=== PATIENT | female | born 2000 | race Caucasian/White ===

== ENCOUNTER 2018-06-16 03:54 | Emergency (ER) | payer BC ==
[~2018-06-16] VITALS: Ht 165.1 cm; Wt 54.4 kg
--- OUTSIDE RECORDS SUMMARY | 2018-06-16 04:00 | XMS REPORT ---
Author Author Bell Mckeon Organization [facility] Address [address] [place] [address] [place] [address] Care Team Providers Care Public Health Inspector Name Role Phone Bell Mckeon Unavailable PROBLEMS Type Condition ICD9-CM Code [id number] Code Onset Dates Condition Status SNOMED Code Problem Acne vulgaris L70.0 Active [id number] ALLERGIES No Known Allergies SOCIAL HISTORY Never Assessed PLAN OF CARE VITAL SIGNS Heart Rate 73 /min 2017-06-11 Height 5 ft 5 in in 2017-06-11 Weight 120 lbs 2017-06-11 BMI 19.97 kg/m2 2017-06-11 Blood pressure systolic 111 mm Hg 2017-06-11 Blood pressure diastolic 72 mm Hg 2017-06-11 MEDICATIONS Medication Instructions Dosage Frequency Start Date End Date Duration Status Solodyn 55 MG Orally daily as directed 24h May, 30 days or untill clear Active Spironolactone 100 MG Orally Once a day 1 tablet with food 24h May, 30 days or untill clear Active Fabior 0.1 % Externally Once a day 1 application to affected area 24h May, 30 days or untill clear Active RESULTS No Results PROCEDURES No Known procedures IMMUNIZATIONS No Known Immunizations MEDICAL (GENERAL) HISTORY Type Description Date Medical History Acne
--- OUTSIDE RECORDS SUMMARY | 2018-06-16 04:00 | XMS REPORT | Continuity of Care Document ---
Demographics Preferred Language Unknown Marital Status Unknown Tenriism Affiliation Unknown Race Unknown Ethnic Group Unknown Author Author Formerly [facility] Address Unknown Phone Unavailable Allergies There is no data. Medications There is no data. Problems There is no data. Procedures There is no data. Results There is no data. Encounters ACCT No. Visit Date/Time Discharge Status Pt. Type Provider Facility Loc./Unit Complaint [id number] 09/02/2012 13:02:12 RECURRING
--- OUTSIDE RECORDS SUMMARY | 2018-06-16 04:00 | XMS REPORT ---
Author Author [facility] Address [address] [place] [address] Care Team Providers Care [employer] Sales Representative Name Role Phone CASTILLOPAOLA Unavailable PROBLEMS Unknown Problems ALLERGIES No Information ENCOUNTERS Encounter Location Date Diagnosis [facility] [id number], [place] [address] October, Encounter for immunization Z23 [facility] [id number] [place] [phone] Jan, Encounter for immunization Z23 [facility] [id number] [place] [phone] Jan, No immunization history record Z78.9 [facility] [id number] [place] [phone] Jan, No immunization history record Z78.9 [facility] [id number] [address] Aug, IMMUNIZATIONS Vaccine Route Administration Date Status MENINGOCOCCAL (MENVEO) IM Intramuscular November 16, 2017 Administered GARDASIL 9 IM Intramuscular November 16, 2017 Administered HEP A (ADULT) IM Intramuscular November 16, 2017 Administered SOCIAL HISTORY Never Assessed REASON FOR VISIT Immunization(s) WB-MA PLAN OF CARE Activity Details Follow Up 2 Months Reason:Next Gardasil injection VITAL SIGNS MEDICATIONS Unknown Medications RESULTS No Results PROCEDURES Procedure Date Ordered Result Body Site MENINGOCOCCAL (MENVEO) November 16, 2017 HEP A (ADULT) November 16, 2017 SINGLE IMMUNIZATION ADMIN November 16, 2017 GARDISIL 9 November 16, 2017 IMMUNIZATION ADMIN, EACH ADD (please include units) November 16, 2017 INSTRUCTIONS MEDICATIONS ADMINISTERED No Known Medications
[2018-06-16] MEDS ORDERED: LACTATED RINGERS 1,000 ML IV ONE (04:12)
[2018-06-16] MEDS ORDERED: ONDANSETRON 4 MG/2 ML (SDV) Z0FRAN IVP ONE ×2 (04:15→04:30)
--- NOTE | 2018-06-16 04:20 | ED GI ---
General Stated Complaint: NAUSEA Source of Information: Patient, Family (mom and dad) Exam Limitations: No Limitations History of Present Illness Date Seen by Provider: Jun 16, 2018 Time Seen by Provider: 04:06 Initial Comments The patient presents to ER by private conveyance with mom and dad and chief complaint that about 3:00 this morning she woke up feeling very short of breath and she thought she was having a panic attack and then she started having a lot of vomiting. He denies any fevers or chills. She denies any productive cough nonproductive cough. She's not been around any sick contacts recently. She's having no diarrhea. She had a bowel movement earlier today that was normal formed. No recent cough cold fevers or chills. She has no significant medical history but she has had her appendix out surgically as well as she had an ovarian cyst about a month ago that ruptured and her OB doctor has an appointment with her later in the week to consider another possible ovarian cyst in her left lower quadrant. She is not having any pain right now. Her last menstrual period started 4 days ago and she is very regular on her oral contraceptives. She occasionally takes spironolactone for her acne with her last dose being 4 days ago. Allergies and Home Medications Allergies Coded Allergies: No Known Drug Allergies (Unverified , 03/20/11) Home Medications Ondansetron 4 Mg Tab.rapdis, 4 MG PO Q6H PRN for NAUSEA/VOMITING Prescribed by: JUAN CARLOS GARRIDO on 06/16/18 0518 Patient Home Medication List Home Medication List Reviewed: Yes Review of Systems Review of Systems Constitutional: No chills, No diaphoresis EENTM: No Blurred Vision, No Double Vision Respiratory: Denies Cough, Denies Shortness of Air Cardiovascular: Denies Chest Pain, Denies Edema Gastrointestinal: Denies Abdomen Distended, Denies Abdominal Pain Genitourinary: Denies Burning, Denies Discharge Musculoskeletal: No back pain, No joint pain Psychiatric/Neurological: Anxiety; Denies Depressed Past Mtsnrmq-Uiedkm-Zossft Hx Patient Social History Alcohol Use: Denies Use Recreational Drug Use: No Smoking Status: Never a Smoker Recent Foreign Travel: No Contact w/Someone Who Travel: No Physical Exam Vital Signs Vital Signs - First Documented 06/16/18 04:06 Temp 97.7 Pulse 119 Resp 20 B/P (MAP) 141/96 (111) Pulse Ox 100 O2 Delivery Room Air Capillary Refill : Height/Weight/BMI Height: '" Weight: lbs. oz. kg; BMI Method: General Appearance: WD/WN, no apparent distress HEENT: PERRL/EOMI, normal ENT inspection, TMs normal, pharynx normal (mildly dry mucosa) Neck: non-tender, full range of motion, normal inspection Respiratory: chest non-tender, lungs clear, normal breath sounds, no respiratory distress, no accessory muscle use Cardiovascular: normal peripheral pulses, regular rate, rhythm, no edema Gastrointestinal: normal bowel sounds, soft, tenderness (mild tenderness near the left ovary), other (negative for Dinh sign or any mesenteric signs. No psoas sign.) Extremities: non-tender, normal inspection, no pedal edema, normal capillary refill Neurologic/Psychiatric: alert, normal mood/affect, oriented x 3 Skin: normal color, warm/dry Progress/Results/Core Measures Results/Orders Lab Results Laboratory Tests Test 06/16/18 04:12 06/16/18 04:36 06/16/18 04:43 Range/Units White Blood Count 13.5 H 4.3-11.0 10^3/uL Red Blood Count 4.52 4.35-5.85 10^6/uL Hemoglobin 14.7 11.5-16.0 G/DL Hematocrit 42 35-52 % Mean Corpuscular Volume 94 80-99 FL Mean Corpuscular Hemoglobin 33 25-34 PG Mean Corpuscular Hemoglobin Concent 35 32-36 G/DL Red Cell Distribution Width 12.2 10.0-14.5 % Platelet Count 338 130-400 10^3/uL Mean Platelet Volume 10.0 7.4-10.4 FL Neutrophils (%) (Auto) 75 42-75 % Lymphocytes (%) (Auto) 18 12-44 % Monocytes (%) (Auto) 6 0-12 % Eosinophils (%) (Auto) 1 0-10 % Basophils (%) (Auto) 0 0-10 % Neutrophils # (Auto) 10.2 H 1.8-7.8 X 10^3 Lymphocytes # (Auto) 2.4 1.0-4.0 X 10^3 Monocytes # (Auto) 0.8 0.0-1.0 X 10^3 Eosinophils # (Auto) 0.1 0.0-0.3 10^3/uL Basophils # (Auto) 0.0 0.0-0.1 10^3/uL Sodium Level 140 135-145 MMOL/L Potassium Level 3.7 3.6-5.0 MMOL/L Chloride Level 105 98-107 MMOL/L Carbon Dioxide Level 22 21-32 MMOL/L Anion Gap 13 5-14 MMOL/L Blood Urea Nitrogen 15 7-18 MG/DL Creatinine 0.81 0.60-1.30 MG/DL Estimat Glomerular Filtration Rate > 60 BUN/Creatinine Ratio 19 Glucose Level 102 70-105 MG/DL Calcium Level 9.7 8.5-10.1 MG/DL Corrected Calcium 8.5-10.1 MG/DL Magnesium Level 2.1 1.8-2.4 MG/DL Total Bilirubin 0.4 0.1-1.0 MG/DL Aspartate Amino Transf (AST/SGOT) 18 5-34 U/L Alanine Aminotransferase (ALT/SGPT) 15 0-55 U/L Alkaline Phosphatase 50 40-136 U/L C-Reactive Protein High Sensitivity 0.26 0.00-0.50 MG/DL Total Protein 7.9 6.4-8.2 GM/DL Albumin 4.8 H 3.2-4.5 GM/DL Glucometer 91 70-110 MG/DL Urine Color YELLOW Urine Clarity CLEAR Urine pH 6 5-9 Urine Specific Olive 1.020 1.016-1.022 Urine Protein 1+ H NEGATIVE Urine Glucose (UA) NEGATIVE NEGATIVE Urine Ketones NEGATIVE NEGATIVE Urine Nitrite NEGATIVE NEGATIVE Urine Bilirubin NEGATIVE NEGATIVE Urine Urobilinogen NORMAL NORMAL MG/DL Urine Leukocyte Esterase NEGATIVE NEGATIVE Urine RBC (Auto) NEGATIVE NEGATIVE Urine RBC NONE /HPF Urine WBC RARE /HPF Urine Squamous Epithelial Cells 0-2 /HPF Urine Crystals NONE /LPF Urine Bacteria TRACE /HPF Urine Casts NONE /LPF Urine Mucus NEGATIVE /LPF Urine Culture Indicated NO Urine Test NEGATIVE NEGATIVE Urine Opiates Screen NEGATIVE NEGATIVE Urine Oxycodone Screen NEGATIVE NEGATIVE Urine Methadone Screen NEGATIVE NEGATIVE Urine Propoxyphene Screen NEGATIVE NEGATIVE Urine Barbiturates Screen NEGATIVE NEGATIVE Ur Tricyclic Antidepressants Screen NEGATIVE NEGATIVE Urine Phencyclidine Screen NEGATIVE NEGATIVE Urine Amphetamines Screen NEGATIVE NEGATIVE Urine Methamphetamines Screen NEGATIVE NEGATIVE Urine Benzodiazepines Screen NEGATIVE NEGATIVE Urine Cocaine Screen NEGATIVE NEGATIVE Urine Cannabinoids Screen NEGATIVE NEGATIVE My Orders Orders - JUAN CARLOS GARRIDO Ua Culture If Indicated (06/16/18 03:59) Hcg,Qualitative Urine (06/16/18 03:59) Cbc With Automated Diff (06/16/18 04:12) Comprehensive Metabolic Panel (06/16/18 04:12) Hs C Reactive Protein (06/16/18 04:12) Magnesium (06/16/18 04:12) Saline Lock/Iv-Start (06/16/18 04:12) Lactated Ringers (Lr 1000 Ml Iv Solution (06/16/18 04:12) Ondansetron Injection (Zofran Injectio (06/16/18 04:15) Promethazine Injection (Phenergan Injec (06/16/18 04:21) Ondansetron Injection (Zofran Injectio (06/16/18 04:30) Promethazine Injection (Phenergan Injec (06/16/18 04:30) Abdomen/Kub 1view (06/16/18 04:25) Drug Screen Stat (Urine) (06/16/18 04:40) Medications Given in ED Current Medications Medications Dose Ordered Sig/Frankie Route Start Time Stop Time Status Last Admin Dose Admin Lactated Ringer's 1,000 ml @ 0 mls/hr Q0M ONCE IV 06/16/18 04:12 06/16/18 04:14 DC 06/16/18 04:28 1,000 MLS/HR Ondansetron HCl 4 mg ONCE ONCE IVP 06/16/18 04:15 06/16/18 04:16 DC 06/16/18 04:28 4 MG Ondansetron HCl 4 mg ONCE ONCE IVP 06/16/18 04:30 06/16/18 04:31 DC 06/16/18 04:29 4 MG Vital Signs/I&O 06/16/18 04:06 Temp 97.7 Pulse 119 Resp 20 B/P (MAP) 141/96 (111) Pulse Ox 100 O2 Delivery Room Air Progress Progress Note #1: Time: 04:23 Progress Note 4 mg Zofran and would do some fluids and basic labs and a chest x-ray since she' s complaining of shortness of breath. She doesn't smoke but she is on control. She's not having any chest pain or objective vital sign evidence of shortness of breath. Her heart rate was elevated when she came here because she was actively retching and vomiting. As she rests it goes back down into the 80s. The initial Zofran was not enough and she still retching so we'll give her another 4 of Zofran and 25 of Phenergan in her liter of LR. She does not really having any belly pain to speak of and is only mildly tender over where she has a known left ovarian cyst that she has plans to follow-up with later this week on. Her bowel sounds are very active so a viral gastroenteritis seems most likely. Progress Note #2: Time: 05:14 Progress Note The patient's nausea is now resolved. She still not having that tender or acute abdomen. We will shoot a plain film x-ray to make sure thinks okay is no evidence of obvious obstruction but otherwise we'll plan to treat her conservatively for gastroenteritis with some Zofran at home. Diagnostic Imaging Diagonstic Imaging: Xray Plain Films/CT/US/NM/MRI: abdomen (KUB 1 view) Comments Unremarkable bowel gas pattern with some gas distended large intestine but no air-fluid levels. No transition point or evidence of bowel obstruction. Reviewed: Reviewed by Me Departure Impression Primary Impression: Gastroenteritis Disposition: 01 HOME, SELF-CARE Condition: Improved Departure-Patient Inst. Decision time for Depature: 05:23 Referrals: NO,LOCAL PHYSICIAN (PCP) Primary Care Physician OTONIEL GUZMAN DO Patient Instructions: [id number] Add. Discharge Instructions: Drink lots of fluids. Clear liquid diet until your symptoms are getting better. If you start to have diarrhea then let it go for 24-48 hours before attempting to stop it using Imodium or Pepto-Bismol. Zofran 1 tablet every 6 hours as needed for nausea and/or vomiting placed under the tongue and allowed to absorb your mouth. Scripts Ondansetron (Ondansetron Odt) 4 Mg Tab.rapdis 4 MG PO Q6H PRN for NAUSEA/VOMITING, #8 TAB 0 Refills Prov: JUAN CARLOS GARRIDO 06/16/18 JUAN CARLOS GARRIDO Jun 16, 2018 04:20
[2018-06-16 04:21] LABS: BASOPHILS % (AUTO) 0 % (0-10); EOSINOPHILS # (AUTO) 0.1 10^3/uL (0.0-0.3); EOSINOPHILS % (AUTO) 1 % (0-10); HEMATOCRIT 42 % (35-52); HEMOGLOBIN 14.7 G/DL (11.5-16.0); LYMPHOCYTES # (AUTO) 2.4 X 10^3 (1.0-4.0); LYMPHOCYTES % (AUTO) 18 % (12-44); MEAN CORPUSCULAR HEMOGLOBIN 33 PG (25-34); MEAN CORPUSCULAR HGB CONC 35 G/DL (32-36); MEAN CORPUSCULAR VOLUME 94 FL (80-99); MONOCYTES # (AUTO) 0.8 X 10^3 (0.0-1.0); MONOCYTES % (AUTO) 6 % (0-12); NEUTROPHILS # (AUTO) 10.2 X 10^3 (1.8-7.8); NEUTROPHILS % (AUTO) 75 % (42-75); PLATELET COUNT 338 10^3/uL (130-400); RED BLOOD COUNT 4.52 10^6/uL (4.35-5.85); RED CELL DISTRIBUTION WIDTH 12.2 % (10.0-14.5); WHITE BLOOD COUNT 13.5 10^3/uL (4.3-11.0)
[2018-06-16] MEDS ORDERED: PROMETHAZINE INJ 25 MG/ML (PHENERGAN) AMP ONE (04:21)
[2018-06-16] MEDS ORDERED: PROMETHAZINE INJ 25 MG/ML (PHENERGAN) AMP IVP ONE (04:30)
[2018-06-16 04:43] LABS: ALANINE AMINOTRANSFERASE 15 U/L (0-55); ALBUMIN 4.8 GM/DL (3.2-4.5); ALKALINE PHOSPHATASE 50 U/L (40-136); BILIRUBIN,TOTAL 0.4 MG/DL (0.1-1.0); BUN/CREATININE RATIO 19; CALCIUM 9.7 MG/DL (8.5-10.1); CARBON DIOXIDE 22 MMOL/L (21-32); CHLORIDE 105 MMOL/L (98-107); CREATININE SERUM 0.81 MG/DL (0.60-1.30); GFR ESTIMATED > 60; GLUCOSE 102 MG/DL (70-105); MAGNESIUM 2.1 MG/DL (1.8-2.4); POTASSIUM 3.7 MMOL/L (3.6-5.0); SODIUM 140 MMOL/L (135-145); TOTAL PROTEIN 7.9 GM/DL (6.4-8.2)
[2018-06-16 04:48] LABS: BILIRUBIN,URINE NEGATIVE (NEGATIVE); CLARITY,URINE CLEAR; COLOR,URINE YELLOW; GLUCOSE, URINE (UA) NEGATIVE (NEGATIVE); KETONES,URINE NEGATIVE (NEGATIVE); LEUKOCYTE ESTERASE ,URINE NEGATIVE (NEGATIVE); NITRITE,URINE NEGATIVE (NEGATIVE); PH,URINE 6 (5-9); PROTEIN,URINE 1+ (NEGATIVE); UROBILINOGEN,URINE NORMAL (NORMAL)
[2018-06-16 04:58] LABS: BACTERIA,URINE TRACE /HPF; HCG,QUALITATIVE URINE NEGATIVE (NEGATIVE); SQUAMOUS EPITHELIAL CELL,UR 0-2 /HPF; WBC,URINE RARE /HPF
[2018-06-16 05:00] LABS: AMPHETAMINE SCREEN, URINE NEGATIVE (NEGATIVE); BARBITURATE SCREEN URINE NEGATIVE (NEGATIVE); BENZODIAZEPINES SCREEN URINE NEGATIVE (NEGATIVE); CANNABINOID SCREEN, URINE NEGATIVE (NEGATIVE); COCAINE SCREEN URINE NEGATIVE (NEGATIVE); METHADONE STAT NEGATIVE (NEGATIVE); METHAMPHETAMINE SCREEN URINE S NEGATIVE (NEGATIVE); OPIATE SCREEN URINE NEGATIVE (NEGATIVE); OXYCODONE STAT NEGATIVE (NEGATIVE); PROPOXYPHENE STAT NEGATIVE (NEGATIVE); TRICYCLIC ANTIDEPRESSANTS SCRE NEGATIVE (NEGATIVE)
[2018-06-16] MEDS ORDERED: ONDA4TAB11 PO (05:18)
[2018-06-16 05:38] VITALS: BP 112/65
[2018-06-16] MEDS ORDERED: RX-ONDANSETRON 4 MG ODT (ZOFRAN) PPK #4 ONE (05:43)
[2018-06-16] MEDS ORDERED: PROMETHAZINE 25 MG (PHENERGAN) TAB ONE (05:44)
[2018-06-16] MEDS ORDERED: RX-ONDANSETRON 4 MG ODT (ZOFRAN) PPK #4 PO STA (05:44)
[2018-06-16] MEDS ORDERED: PROMETHAZINE 25 MG (PHENERGAN) TAB PO ONE (06:00)
--- NOTE | 2018-06-16 06:13 | Diagnostic Imaging Report ---
EXAMINATION: AP view of the abdomen INDICATION: Nausea and vomiting. No comparison is available. FINDINGS: There is a moderate to large degree of stool demonstrated within the colon. There is no evidence of small or large bowel dilation to suggest obstruction. There are no unexpected abdominal calcifications. The visualized osseous structures are unremarkable. IMPRESSION: 1. Moderate to large degree of stool throughout the colon without evidence of bowel dilation to suggest obstructive process. Dictated by: Dictated on workstation # [id number]
== END 2018-06-16 05:38 | disposition home or self-care (01) ==
LOC: EDUNIT# 03:54 → ER 03:56
DX: K52.9 Noninfective gastroenteritis and colitis, unspecified (principal); F41.0 Panic disorder [episodic paroxysmal anxiety]
CPT/HCPCS: 36415; 74018; 80053; 80306; 81000; 82962; 83735; 84703; 85025; 86141

== ENCOUNTER → 2018-09-10 | Outpatient (CLI) | payer BC ==
[~2018-09-10] MED LIST: ONDA4TAB11 PO
== END ==
LOC: LAB 11:54
PROVIDERS: ATTEND Family Medicine
DX: J02.9 Acute pharyngitis, unspecified (principal)
CPT/HCPCS: 36415; 86308

== ENCOUNTER → 2018-09-11 | Outpatient (CLI) | payer BC ==
--- NOTE | 2018-09-11 13:42 | Diagnostic Imaging Report ---
PROCEDURE: US Non-ob pelvis comp/trans. TECHNIQUE: Multiple real-time grayscale images were obtained of the pelvis in various projections endovaginally. Transabdominal imaging was also performed. INDICATION: Left lower quadrant pain. FINDINGS: The uterus measures 5.8 x 4.1 x 2.8 cm. Endometrium is 4 mm in thickness. No myometrial mass is identified. The right ovary measures 3.4 x 2.0 x 1.9 cm and the left ovary measures 3.1 x 2.9 x 1.1 cm. Both ovaries contain small follicles. There is blood flow to both ovaries. No adnexal mass is identified. Minimal free fluid is identified in the posterior cul-de-sac, likely physiologic. IMPRESSION: Unremarkable transabdominal and transvaginal pelvic ultrasound. Dictated by: Dictated on workstation # [id number]
== END ==
LOC: RAD 12:34
PROVIDERS: ATTEND Family Medicine
DX: R10.32 Left lower quadrant pain (principal); Z87.42 Personal history of other diseases of the female genital tract
CPT/HCPCS: 76830; 76856

== ENCOUNTER → 2020-01-30 | Outpatient (CLI) | payer BC ==
--- NOTE | 2020-01-30 12:50 | Diagnostic Imaging Report ---
PROCEDURE: US Non-ob pelvis comp/trans. TECHNIQUE: Multiple realtime grayscale images were obtained of the pelvis in various projections endovaginally. Transabdominal imaging was also performed. INDICATION: Right-sided pelvic pain. FINDINGS: The uterus is anteverted measuring 8.0 x 3.6 x 4.1 cm. Endometrium is 7 mm in thickness. No myometrial mass is detected. Right ovary measures 5.0 x 2.9 x 2.6 cm and the left ovary measures 3.3 x 2.0 x 2.1 cm. Ovaries contain small follicles. The right ovary also contains a hemorrhagic cyst measuring 2.6 x 2.2 cm. There is a small amount of adjacent free fluid. Ovaries demonstrate blood flow. IMPRESSION: 2.6 cm hemorrhagic right ovarian cyst. The study is otherwise unremarkable. Dictated by: Dictated on workstation # [id number]
== END ==
LOC: RAD 10:22
PROVIDERS: ATTEND Family Medicine
DX: N83.201 Unspecified ovarian cyst, right side (principal)
CPT/HCPCS: 76830; 76856

== ENCOUNTER → 2020-11-05 | Outpatient (CLI) | payer BC ==
[2020-11-05 12:37] LABS: BASOPHILS # (AUTO) 0.1 10^3/uL (0.0-0.1); BASOPHILS % (AUTO) 1 % (0-10); EOSINOPHILS # (AUTO) 0.1 10^3/uL (0.0-0.3); EOSINOPHILS % (AUTO) 1 % (0-10); HEMATOCRIT 39 % (35-52); HEMOGLOBIN 13.3 g/dL (11.5-16.0); LYMPHOCYTES # (AUTO) 2.5 10^3/uL (1.0-4.0); LYMPHOCYTES % (AUTO) 40 % (12-44); MEAN CORPUSCULAR HEMOGLOBIN 33 pg (25-34); MEAN CORPUSCULAR HGB CONC 34 g/dL (32-36); MEAN CORPUSCULAR VOLUME 96 fL (80-99); MEAN PLATELET VOLUME 10.1 fL (9.0-12.2); MONOCYTES # (AUTO) 0.6 10^3/uL (0.0-1.0); MONOCYTES % (AUTO) 9 % (0-12); NEUTROPHILS # (AUTO) 3.1 10^3/uL (1.8-7.8); NEUTROPHILS % (AUTO) 49 % (42-75); PLATELET COUNT 302 10^3/uL (130-400); WHITE BLOOD COUNT 6.3 10^3/uL (4.3-11.0)
[2020-11-05 12:57] LABS: ALANINE AMINOTRANSFERASE 9 U/L (0-55); ALBUMIN 4.3 GM/DL (3.2-4.5); ALKALINE PHOSPHATASE 56 U/L (40-136); BILIRUBIN,TOTAL 0.4 MG/DL (0.1-1.0); BUN/CREATININE RATIO 16; CALCIUM 9.1 MG/DL (8.5-10.1); CARBON DIOXIDE 24 MMOL/L (21-32); CHLORIDE 106 MMOL/L (98-107); CREATININE SERUM 0.74 MG/DL (0.60-1.30); GFR ESTIMATED > 60; GLUCOSE 83 MG/DL (70-105); SODIUM 137 MMOL/L (135-145); TOTAL PROTEIN 7.1 GM/DL (6.4-8.2)
[2020-11-05 12:58] LABS: EOSINOPHILS % (MANUAL) 1 %; LYMPHOCYTES % (MANUAL) 42 %; MONOCYTES % (MANUAL) 8 %; NEUTROPHILS % (MANUAL) 47 %; RBC MORPH NORMAL; REACTIVE LYMPHOCYTES 2 %
== END ==
LOC: LAB 12:12
PROVIDERS: ATTEND Family Medicine
DX: R42 Dizziness and giddiness (principal)
CPT/HCPCS: 36415; 80053; 85007; 85027

== ENCOUNTER → 2021-12-28 | Outpatient (CLI) | payer BC ==
--- NOTE | 2021-12-28 11:55 | Diagnostic Imaging Report ---
PROCEDURE: Pelvic comp/transvaginal sonogram. TECHNIQUE: Complete transabdominal and transvaginal pelvic ultrasound was performed. In addition, limited pelvic Doppler was performed. INDICATION: Menorrhagia and right-sided pelvic pain. FINDINGS: The uterus is anteverted measuring 7.2 x 3.5 x 4.9 cm. The endometrium is 6 mm in thickness. No myometrial mass is detected. The right ovary measures 3.3 x 2.9 x 2.7 cm and the left ovary measures 2.8 x 1.6 x 2.0 cm. The ovaries contain follicles. There does appear to be a partially collapsed hemorrhagic cyst involving the right ovary measuring 1.5 x 1.9 x 0.8 cm. There is blood flow to both ovaries. No free fluid is detected. IMPRESSION: Partially collapsed hemorrhagic right ovarian cyst. The study is otherwise unremarkable. Dictated by: Dictated on workstation # [id number]
== END ==
LOC: RAD 10:07
PROVIDERS: ATTEND Nurse Practitioner Family
DX: N83.201 Unspecified ovarian cyst, right side (principal); N92.0 Excessive and frequent menstruation with regular cycle
CPT/HCPCS: 76830; 76856

== ENCOUNTER 2023-04-08 12:20 | Emergency (ER) | payer BC ==
[~2023-04-08] VITALS: Ht 165 cm; Wt 56.0 kg
[2023-04-08 12:36] VITALS: BP 124/88
--- NOTE | 2023-04-08 12:48 | ED EENT ---
History of Present Illness General Chief Complaint: General Problems/Pain Stated Complaint: EAR PAIN, PT IS 9 WEEKS PREG Nursing Triage Note: PT TO ED W/ C/O BILAT EAR PAIN ONSET X3 DAYS W/ NO IMPROVEMENT FROM GTTS PRESCRIBED BY STRATEGIC PARTNERSHIP MANAGER. ALSO C/O MOUTH SORES, INCREASED VOMITING ET DIZZINESS. PT REPORTS SHE IS 9 WKS AT THIS TIME. Source: patient Exam Limitations: no limitations History of Present Illness Date Seen by Provider: Apr 08, 2023 Time Seen by Provider: 12:43 Initial Comments 23-year-old female who is roughly 9 weeks presents with bilateral ear pain and clogging of her left ear mild sore throat she does have mild seasonal allergies but has not experienced symptoms like this before. No nausea vomiting no headache no fever. No complaints. She sees her vehicle operator for her first visit on the Timing/Duration: gradual Severity: moderate Location: ear (R), ear (L) Prearrival Treatment: no prearrival treatment Associated Symptoms: sore throat (Mild) Allergies and Home Medications Allergies Coded Allergies: No Known Drug Allergies (Unverified , 03/20/11) Patient Home Medication List Home Medication List Reviewed: Yes Amoxicillin (Amoxicillin) 500 Mg Capsule, 500 MG PO TID Prescribed by: Cherry Roberts on 04/08/23 1249 Ondansetron (Ondansetron Odt) 4 Mg Tab.rapdis, 4 MG PO Q6H PRN for NAUSEA/VOMITING Prescribed by: JUAN CARLOS GARRIDO on 06/16/18 0518 Review of Systems Review of Systems Constitutional: no symptoms reported Eyes: No Symptoms Reported Ears: See HPI, Pain Nose: no symptoms reported Mouth: no symptoms reported Throat: see HPI, pain Respiratory: no symptoms reported Cardiovascular: no symptoms reported Gastrointestinal: no symptoms reported : Yes Musculoskeletal: no symptoms reported Skin: no symptoms reported Neurological: No Symptoms Reported Hematologic/Lymphatic: No Symptoms Reported Immunological/Allergic: no symptoms reported, pollen allergy (Mild) All Other Systems Reviewed Negative Unless Noted: Yes Past Iokvwjk-Mjcvmz-Hgfncy Hx Patient Social History Tobacco Use?: No Use of E-Cig and/or Vaping dev: No Substance use?: No Alcohol Use?: No Pt feels they are or have been: No Immunizations Up To Date PED Vaccines UTD: Yes Seasonal Allergies Seasonal Allergies: No Past Medical History Surgery/Hospitalization HX: APPY, OVARIAN CYST REMOVAL, ENDOMETRIOSIS, T&A Surgeries: Yes Appendectomy Respiratory: No Cardiac: No Neurological: No Genitourinary: No Gastrointestinal: No Musculoskeletal: No Endocrine: No HEENT: No Cancer: No Psychosocial: No Integumentary: No Blood Disorders: No Physical Exam Vital Signs Vital Signs - First Documented 04/08/23 12:36 Temp 36.8 Pulse 96 Resp 20 B/P (MAP) 124/88 (100) Pulse Ox 99 O2 Delivery Room Air Height, Weight, BMI Height: 5'5.00" Weight: 120lbs. oz. 54.993312ty; 20.00 BMI Method:Stated General Appearance: WD/WN Eyes: bilateral eye normal inspection, bilateral eye PERRL, bilateral eye EOMI Ears: right ear TM dull, right ear TM red; left ear TM bulging; bilateral ear auricle normal, bilateral ear erythema, bilateral ear tenderness Nose: normal inspection Mouth/Throat: normal mouth inspection, pharynx normal Neck: non-tender, full range of motion, supple Cardiovascular: regular rate, rhythm Respiratory: chest non-tender, lungs clear, normal breath sounds Gastrointestinal: non tender Neurologic/Psychiatric: head worker II-XII nml as tested, no motor/sensory deficits, alert, normal mood/affect, oriented x 3 Skin: normal color, warm/dry Progress/Results/Core Measures Results/Orders Vital Signs/I&O 04/08/23 12:36 Temp 36.8 Pulse 96 Resp 20 B/P (MAP) 124/88 (100) Pulse Ox 99 O2 Delivery Room Air Blood Pressure Mean: 100 Progress Progress Note : Progress Note Patient has bilateral ear pain. Left TM is bulging with purulent material behind it. No perforation. No swelling or edema of the ear canals. Right TM is dull and red. Some erythema in the canal. Mild sore throat pharynx is normal no evidence of strep no fever no difficulty swallowing. Will place on antibiotic for otitis media. Patient to notify FUEL CELL ENGINEER of visit she does see him to get established in 8 days. No nausea vomiting we will attempt to get heart tones may be difficult as she is only 9 weeks . No vaginal complaints she has not yet had a sonogram. Departure Impression Primary Impression: Otitis media Qualified Codes: H66.002 - Acute suppurative otitis media without spontaneous rupture of ear drum, left ear Additional Impression: First trimester Disposition: HOME, SELF-CARE Condition: Stable Departure-Patient Inst. Referrals: NELLI BETTS MD (PCP/Family) Primary Care Physician Patient Instructions: Ear Infection ED, How to Adapt to Physical Changes During , - The First Month, Taking in Enough Fluids While You Are Scripts Amoxicillin (Amoxicillin) 500 Mg Capsule 500 MG PO TID for 10 Days, #30 CAP 0 Refills Prov: CHERRY ROBERTS DO 04/08/23 CHERRY ROBERTS DO Apr 08, 2023 12:48
[2023-04-08] MEDS ORDERED: AMOX500C2 PO ×2 (12:49→13:24)
== END 2023-04-08 12:54 | disposition home or self-care (01) ==
LOC: EDUNIT# 12:20 → ER 12:22
DX: O99.891 Other specified diseases and conditions complicating pregnancy (principal); H66.93 Otitis media, unspecified, bilateral; Z3A.09 9 weeks gestation of pregnancy
CPT/HCPCS: 99283